=== PATIENT | female | born 2005 | race Caucasian/White ===

== ENCOUNTER 2025-05-11 08:51 | Emergency (ER) | payer OTHER ==
[~2025-05-11] VITALS: Ht 153 cm; Wt 56.8 kg
[2025-05-11 08:55] VITALS: TEMP 95.6
[2025-05-11 09:25] LABS: PLATELET COUNT (AUTO) 318 K/uL (150-450); RED BLOOD CELL COUNT(AUTO) 4.28 MIL/uL (4.00-5.20); RED CELL DISTRIBUTION WIDTH 11.9 % (11.5-14.5); WHITE BLOOD COUNT (AUTO) 7.6 K/uL (4.5-11.0)
[2025-05-11 09:33] LABS: CALCIUM, TOTAL 8.6 mg/dL (8.8-10.5); CREATININE 0.70 mg/dL (0.60-1.30); GLOMERULAR FILTR. RATE CALC > 60 mL/min (>60); GLUCOSE,RANDOM 96 mg/dL (70-110); SODIUM SERUM 139 mmol/L (136-145); UREA NITROGEN, BLOOD 9 mg/dL (7-18)
[2025-05-11 09:37] LABS: ASPARTATE AMINOTRANSFERASE 16.0 U/L (15-37); TOTAL PROTEIN, SERUM 7.4 g/dL (6.4-8.2)
[2025-05-11] MEDS: FAMOTIDINE 20 MG/2 ML VIAL IVP ONE (09:40)
[2025-05-11] MEDS: ONDANSETRON HCL 4 MG/2 ML VIAL IVP ONE (09:40)
[2025-05-11] MEDS: SODIUM CHLORIDE 0.9% 1,000 ML IV ONE (09:40)
[2025-05-11 09:43] LABS: PHOSPHORUS 3.5 mg/dL (2.5-4.9)
[2025-05-11] MEDS ORDERED: ONDA-104 PO (09:48)
[2025-05-11 10:15] VITALS: BP 110/70; PULSE 68; RESP 14; O2SAT 98
== END 2025-05-11 10:31 | disposition home or self-care (01) ==
LOC: EMS 08:55
DX: R11.2 Nausea with vomiting, unspecified (principal); R19.7 Diarrhea, unspecified; F12.90 Cannabis use, unspecified, uncomplicated
CPT/HCPCS: 99284; 96374; 96375; 80048; 80076; 83690; 83735; 84100; 84703; 85025; 36415; J3490; J2405; J7030